=== PATIENT | female | born 1950 | race Caucasian/White ===

== ENCOUNTER → 2020-01-20 00:01 | Outpatient (BNVA) | payer MEDICARE, SELFPAY | PROVIDERS: Family Provider Internal Medicine; PCP Internal Medicine; Visit Provider Nurse Practitioner | DX: E78.5 Hyperlipidemia, unspecified (principal); I10 Essential (primary) hypertension; F32.9 Major depressive disorder, single episode, unspecified; I63.9 Cerebral infarction, unspecified | CPT/HCPCS: 80053; 80061; 84443; 85025 ==